=== PATIENT | female | born 1975 | race Two or more races ===

== ENCOUNTER 2023-08-30 13:52 | Inpatient (IN) | payer OTHER ==
[~2023-08-30] VITALS: Ht 152.4 cm; Wt 105.2 kg
[2023-08-30] MEDS ORDERED: SYNTHROID175 MCG PO (14:17)
[2023-08-30] MEDS ORDERED: [UNRECOGNIZED DRUG - OTHER] (14:19)
[2023-08-30] MEDS ORDERED: SINGULAIR10 MG PO (14:20)
[2023-08-30] MEDS ORDERED: GLUCOTROL (14:20)
[2023-08-30] MEDS ORDERED: CLARITIN5 MG PO (14:20)
[2023-08-30] MEDS ORDERED: COZAAR100 MG PO (14:21)
[2023-08-30] MEDS ORDERED: LEXAPRO20 MG PO (14:21)
[2023-08-30] MEDS ORDERED: SEROQUEL XR200 MG PO (14:22)
[2023-08-30] MEDS ORDERED: [UNRECOGNIZED DRUG - SUPPLY] TP (14:22)
[2023-08-30] MEDS ORDERED: LYRICA150 MG PO (14:23)
--- NOTE | 2023-08-30 14:24 | NUR ---
PTE REFIERE [facility] ,TOS Y DOLOR COPRORAL DESDE HACEVARIOS CUADRA. SE LE QUIANA S/V Y SE MANTIENE EN VICTOR M DE ESPERA.
[2023-08-30] MEDS ORDERED: METHYLPREDNISOLONE SOD SUCC 500 MG VIAL IV STA (16:54)
[2023-08-30] MEDS ORDERED: ALBUTEROL SULFATE 3 ML/2.5 MG AMPUL.NEB IH SCH (17:00)
[2023-08-30] MEDS ORDERED: IPRATROPIUM BROMIDE 0.5 MG/2.5 ML AMPUL.NEB IH SCH (17:00)
--- NOTE | 2023-08-30 17:31 | NUR ---
SE RECIBE PTE. ALERTA Y ORIENTADA X3. SE ORIENTA SOBRE TX MEDICO Y REFIERE ENTENDER. SE REALIZAN MUESTRAS DE LAB BAJO MEDIDAS ASEPTICAS Y SE ENVIAN. SE REALZIAN CANALIZACION EN BRAZO DERECHO CON ANGIO #22, BAJO MEDIDAS ASEPTICAS. SE ADMINISTRA MEDICAMENTO SYD ORDEN MEDICA.
[2023-08-30 17:49] LABS: HEMATOCRIT 41.9 % (36.0-45.00); HEMOGLOBIN 13.7 g/dL (12.0-15.00); MEAN CELL VOLUME 75.7 fL (80.00-100.00); MEAN CORPUSCULAR HEMOGLOBIN 24.7 pg (27.00-32.0); MEAN CORPUSCULAR HGB CONC 32.7 g/dl (32.0-36.0); PLATELET COUNT 269 K/uL (150-450); RED BLOOD COUNT 5.54 M/uL (4.00-6.00)
[2023-08-30 17:52] LABS: RED CELL DISTRIBUTION WIDTH 17.4 % (11.5-14.5)
[2023-08-30 18:10] LABS: ALBUMIN 3.9 gm/dL (3.4-5.0); BILIRUBIN TOTAL 0.38 mg/dL (0.3-1.2); CALCIUM 9.4 mg/dL (8.5-10.1); CREATININE SERUM 0.92 mg/dL (0.55-1.02); GFR 66.01; GLOBULINA 4.2 G/DL (2.4-3.5); POTASSIUM 3.77 mEq/L (3.5-5.1); TOTAL PROTEIN 8.1 gm/dL (6.4-8.2)
[2023-08-30] MEDS ORDERED: GUAIFENESIN/DEXTROMETHORPHAN 100 MG/5 ML ML PO STA (20:21)
[2023-08-30 22:33] LABS: ABG PH 7.422 (7.35-7.45); ABG PO2 70.8 mmHg (80-100); ABG pCO2 36.4 mmHg (35-45); SaO2 94.3 %
[2023-08-30 22:34] LABS: BASE EXCESS -0.7 mmol/l; BICARBONATE 23.2 mmol/l (23-25); Tco2 24.3 mmol/l
[2023-08-30 22:36] LABS: o2 21 %
[2023-08-30 22:37] LABS: allen test SATISFACTORY; puncture site RADIAL RIGHT
[2023-08-31] MEDS ORDERED: HYDROCODONE/CHLORPHEN P-STIREX 5 ML ML PO STA (00:16)
[2023-08-31] MEDS ORDERED: ALBUTEROL SULFATE 3 ML/2.5 MG AMPUL.NEB IH STA (02:23)
[2023-08-31] MEDS ORDERED: BUDESONIDE 0.5 MG/2 ML AMPUL.NEB IH STA (02:23)
[2023-08-31] MEDS ORDERED: ALBUTEROL SULFATE 3 ML/2.5 MG AMPUL.NEB IH SCH ×2 (04:00→09:00)
[2023-08-31] MEDS ORDERED: GUAIFENESIN/DEXTROMETHORPHAN 100 MG/5 ML ML PO STA (04:58)
[2023-08-31] MEDS ORDERED: INSULIN REGULAR, HUMAN 300 UNITS/3 ML UNITS IV STA (07:28)
--- NOTE | 2023-08-31 07:28 | NUR ---
SE RECIBE PACIENTE FEMENINA ALERTA Y ORIENTADA EN CLIVE K6 CON BARANDAS ELEVADAS. AREA DE VENOPUNCION PATENTE GISSELLE DE EDEMA Y ENROJECIMIENTO. PENDIENTE LA CONSULTA. SE OBSERVA POR CAMBIOS.
[2023-08-31] MEDS ORDERED: 0.9 % SODIUM CHLORIDE 1,000 ML IV SCH (07:45)
[2023-08-31] MEDS ORDERED: METHYLPREDNISOLONE SOD SUCC 40 MG VIAL IV SCH (09:00)
[2023-08-31] MEDS ORDERED: AZITHROMYCIN 500 MG VIAL IV SCH (09:00)
[2023-08-31] MEDS ORDERED: IPRATROPIUM BROMIDE 0.5 MG/2.5 ML AMPUL.NEB IH SCH (09:00)
[2023-08-31] MEDS ORDERED: CEFTRIAXONE SODIUM 1,000 MG VIAL IV SCH (09:00)
[2023-08-31] MEDS ORDERED: GUAIFENESIN 200 MG/10 ML BLIST.PACK PO SCH (12:00)
[2023-08-31] MEDS ORDERED: BUTALB/ACETAMINOPHEN/CAFFEINE 1 TAB TABLET PO PRN (18:00)
[2023-09-01] MEDS ORDERED: METHYLPREDNISOLONE SOD SUCC 40 MG VIAL IV SCH
[2023-09-01] MEDS ORDERED: METHYLPREDNISOLONE SOD SUCC 125 MG VIAL IV SCH (12:00)
[2023-09-01] MEDS ORDERED: DEXTROSE 50 % IN WATER 0.5 G/ML DISP.SYRIN IV PRN (12:00)
[2023-09-01] MEDS ORDERED: INSULIN LISPRO 1,000 UNIT/10 ML UNITS SUBCUTANEO PRN (12:00)
[2023-09-01] MEDS ORDERED: Pregabalin 50 MG CAPSULE PO SCH (17:00)
[2023-09-01] MEDS ORDERED: LORATADINE 10 MG TABLET PO SCH (17:00)
[2023-09-01] MEDS ORDERED: QUETIAPINE FUMARATE 100 MG TABLET PO SCH (21:00)
[2023-09-01] MEDS ORDERED: INSULIN GLARGINE,HUM.REC.ANLOG 1,000 UNITS/10 ML UNITS SUBCUTANEO SCH (21:00)
[2023-09-02] MEDS ORDERED: LEVOTHYROXINE SODIUM 175 MCG TABLET PO SCH (06:00)
[2023-09-02] MEDS ORDERED: LACTULOSE 20 G/30 ML BLIST.PACK PO STA (07:50)
[2023-09-02] MEDS ORDERED: LOSARTAN POTASSIUM 100 MG TABLET PO SCH (09:00)
[2023-09-02] MEDS ORDERED: FAMOTIDINE/PF 20 MG/2 ML VIAL IV SCH (09:00)
[2023-09-02] MEDS ORDERED: ATORVASTATIN CALCIUM 20 MG TABLET PO SCH (09:00)
[2023-09-02] MEDS ORDERED: FLUCONAZOLE 200 MG TABLET PO ONE (16:00)
[2023-09-02] MEDS ORDERED: BENZONATATE 200 MG CAPSULE PO SCH (17:00)
[2023-09-02] MEDS ORDERED: CLOTRIMAZOLE 10 MG TROCHE MM SCH (17:00)
[2023-09-02] MEDS ORDERED: METHYLPREDNISOLONE SOD SUCC 40 MG VIAL IV SCH (17:00)
[2023-09-03] MEDS ORDERED: CODEINE/PROMETHAZINE HCL 1 ML ML PO SCH (01:00)
[2023-09-03] MEDS ORDERED: ENALAPRILAT DIHYDRATE 1.25 MG/ML VIAL IV PRN (08:30)
[2023-09-03] MEDS ORDERED: AMLODIPINE BESYLATE 5 MG TABLET PO SCH (09:00)
[2023-09-03] MEDS ORDERED: FLUCONAZOLE IN NACL,ISO-OSM 2 MG/ML ML IV SCH (12:00)
[2023-09-03] MEDS ORDERED: METHYLPREDNISOLONE SOD SUCC 40 MG VIAL IV SCH (17:00)
[2023-09-04] MEDS ORDERED: METHYLPREDNISOLONE SOD SUCC 40 MG VIAL IV SCH (09:00)
[2023-09-06] MEDS ORDERED: METHYLPREDNISOLONE SOD SUCC 40 MG VIAL IV SCH (09:00)
[2023-09-07] MEDS ORDERED: SODIUM CHLORIDE 0.45 % 1,000 ML IV SCH (08:15)
[2023-09-07] MEDS ORDERED: CODEINE/PROMETHAZINE HCL 1 ML ML PO SCH (09:00)
[2023-09-08] MEDS ORDERED: CODEINE/PROMETHAZINE HCL 1 ML ML PO SCH (09:00)
[2023-09-09] MEDS ORDERED: METHYLPREDNISOLONE SOD SUCC 40 MG VIAL IV SCH ×2 (01:00→09:00)
[2023-09-09] MEDS ORDERED: CODEINE/PROMETHAZINE HCL 1 ML ML PO SCH (09:00)
[2023-09-09] MEDS ORDERED: PREGABALIN PO SCH (17:00)
[2023-09-10] MEDS ORDERED: METHYLPREDNISOLONE SOD SUCC 40 MG VIAL IV SCH (12:00)
[2023-09-11] MEDS ORDERED: KETOROLAC TROMETHAMINE 30 MG VIAL IV PRN (04:15)
[2023-09-11] MEDS ORDERED: DOCUSATE CALCIUM 240 MG CAPSULE PO SCH (11:21)
[2023-09-12] MEDS ORDERED: METHYLPREDNISOLONE SOD SUCC 40 MG VIAL IV STA (09:02)
[2023-09-12 09:49] LABS: HEMATOCRIT 41.7 % (36.0-45.00); HEMOGLOBIN 13.5 g/dL (12.0-15.00); MEAN CELL VOLUME 79.8 fL (80.00-100.00); MEAN CORPUSCULAR HEMOGLOBIN 25.8 pg (27.00-32.0); MEAN CORPUSCULAR HGB CONC 32.4 g/dl (32.0-36.0); PLATELET COUNT 164 K/uL (150-450); RED BLOOD COUNT 5.22 M/uL (4.00-6.00); RED CELL DISTRIBUTION WIDTH 17.8 % (11.5-14.5)
[2023-09-12 09:58] LABS: CALCIUM 9.5 mg/dL (8.5-10.1); CREATININE SERUM 0.77 mg/dL (0.55-1.02); GFR 81.06; POTASSIUM 4.53 mEq/L (3.5-5.1)
[2023-09-12] MEDS ORDERED: METHYLPREDNISOLONE SOD SUCC 40 MG VIAL IV SCH (12:00)
[2023-09-12] MEDS ORDERED: CODEINE/PROMETHAZINE HCL 1 ML ML PO STA (12:05)
[2023-09-12] MEDS ORDERED: CODEINE/PROMETHAZINE HCL 1 ML ML PO SCH (21:00)
[2023-09-12] MEDS ORDERED: INSULIN LISPRO 1,000 UNIT/10 ML UNITS SUBCUTANEO STA (22:50)
[2023-09-13] MEDS ORDERED: INSULIN GLARGINE,HUM.REC.ANLOG 1,000 UNITS/10 ML UNITS SUBCUTANEO SCH (21:00)
[2023-09-14] MEDS ORDERED: BUTALB/ACETAMINOPHEN/CAFFEINE 1 TAB TABLET PO PRN (20:15)
[2023-09-15] MEDS ORDERED: CODEINE/PROMETHAZINE HCL 1 ML ML PO SCH (12:00)
[2023-09-15] MEDS ORDERED: INSULIN REGULAR, HUMAN 1,000 UNIT/10 ML UNITS SUBCUTANEO STA (19:05)
[2023-09-15] MEDS ORDERED: INSULIN REGULAR, HUMAN 300 UNITS/3 ML UNITS IV STA (19:06)
[2023-09-15] MEDS ORDERED: INSULIN GLARGINE,HUM.REC.ANLOG 1,000 UNITS/10 ML UNITS SUBCUTANEO SCH (21:00)
[2023-09-16] MEDS ORDERED: INSULIN LISPRO 1,000 UNIT/10 ML UNITS SUBCUTANEO SCH (08:00)
[2023-09-16] MEDS ORDERED: POLYETHYLENE GLYCOL 3350 17 GM BLIST.PACK PO STA (20:09)
[2023-09-16] MEDS ORDERED: PANTOPRAZOLE SODIUM 40 MG/VIAL VIAL IV SCH (21:28)
[2023-09-17] MEDS ORDERED: INSULIN LISPRO 1,000 UNIT/10 ML UNITS SUBCUTANEO SCH (08:00)
[2023-09-17] MEDS ORDERED: INSULIN REGULAR, HUMAN 1,000 UNIT/10 ML UNITS IV SCH (08:00)
[2023-09-17 08:30] LABS: CALCIUM 8.6 mg/dL (8.5-10.1); CREATININE SERUM 0.73 mg/dL (0.55-1.02); GFR 86.21; POTASSIUM 4.86 mEq/L (3.5-5.1)
[2023-09-17 08:46] LABS: HEMATOCRIT 40.2 % (36.0-45.00); HEMOGLOBIN 13.1 g/dL (12.0-15.00); MEAN CELL VOLUME 81.4 fL (80.00-100.00); MEAN CORPUSCULAR HEMOGLOBIN 26.5 pg (27.00-32.0); MEAN CORPUSCULAR HGB CONC 32.5 g/dl (32.0-36.0); RED BLOOD COUNT 4.94 M/uL (4.00-6.00); RED CELL DISTRIBUTION WIDTH 19.3 % (11.5-14.5)
[2023-09-17] MEDS ORDERED: POLYETHYLENE GLYCOL 3350 17 GM BLIST.PACK PO SCH (09:00)
[2023-09-17 09:06] LABS: PLATELET COUNT 95 K/uL (150-450)
[2023-09-17] MEDS ORDERED: INSULIN LISPRO 1,000 UNIT/10 ML UNITS SUBCUTANEO PRN (11:15)
[2023-09-17] MEDS ORDERED: AZITHROMYCIN 500 MG in 0.9 % SODIUM CHLORIDE 250 ML IV SCH (12:00)
[2023-09-17] MEDS ORDERED: INSULIN GLARGINE,HUM.REC.ANLOG 1,000 UNITS/10 ML UNITS SUBCUTANEO SCH (21:00)
[2023-09-18] MEDS ORDERED: INSULIN LISPRO 1,000 UNIT/10 ML UNITS SUBCUTANEO SCH (08:00)
[2023-09-18] MEDS ORDERED: METHYLPREDNISOLONE SOD SUCC 40 MG VIAL IV SCH (17:00)
[2023-09-19] MEDS ORDERED: POLYETHYLENE GLYCOL 3350 17 GM BLIST.PACK PO SCH (09:00)
[2023-09-20] MEDS ORDERED: METHYLPREDNISOLONE SOD SUCC 40 MG VIAL IV SCH (09:00)
[2023-09-20] MEDS ORDERED: PANTOPRAZOLE SODIUM 40 MG TABLET.DR PO SCH (09:00)
[2023-09-22] MEDS ORDERED: BUTALB/ACETAMINOPHEN/CAFFEINE 1 TAB TABLET PO PRN (03:45)
[2023-09-23 00:10] LABS: borde igm < 1.0 index (0.0-0.9); bordetella igg < 0.95 index (0.00-0.94)
== END 2023-09-22 16:16 | disposition home or self-care (01) | DRG 202 ==
LOC: ER 13:52 → SEC-K 08-31 08:00 → MEDJ 08-31 08:00
PROVIDERS: General Practice; Internal Medicine; ADMIT Internal Medicine; ATTEND Internal Medicine
PROC: BB24ZZZ Computerized Tomography (CT Scan) of Bilateral Lungs (ICD-10-PCS; principal; 2023-08-30)
PROC: 3E0F7GC Introduction of Other Therapeutic Substance into Respiratory Tract, Via Natural or Artificial Opening (ICD-10-PCS; 2023-08-31)
PROC: BB24ZZZ Computerized Tomography (CT Scan) of Bilateral Lungs (ICD-10-PCS; 2023-09-15)
DX: J45.51 Severe persistent asthma with (acute) exacerbation (principal); B37.0 Candidal stomatitis; J20.5 Acute bronchitis due to respiratory syncytial virus; E11.9 Type 2 diabetes mellitus without complications; I10 Essential (primary) hypertension; B33.8 Other specified viral diseases; Z79.4 Long term (current) use of insulin

== ENCOUNTER 2024-09-03 11:55 | Emergency (ER) | payer OTHER ==
[~2024-09-03] VITALS: Ht 160 cm; Wt 103.4 kg
[~2024-09-03 11:55] MED LIST: CLARITIN5 MG PO; COZAAR100 MG PO; GLUCOTROL; LEXAPRO20 MG PO; LYRICA150 MG PO; SEROQUEL XR200 MG PO; SINGULAIR10 MG PO; SYNTHROID175 MCG PO; [UNRECOGNIZED DRUG - OTHER]; [UNRECOGNIZED DRUG - SUPPLY] TP
[2024-09-03] MEDS ORDERED: CEFTRIAXONE SODIUM 1,000 MG VIAL IV STA (14:49)
[2024-09-03] MEDS ORDERED: IPRATROPIUM/ALBUTEROL SULFATE 3 ML AMPUL.NEB IH SCH (15:00)
[2024-09-03 15:30] LABS: HEMOGLOBIN 13.6 g/dL (12.0-15.00); MEAN CELL VOLUME 80.8 fL (80.00-100.00); MEAN CORPUSCULAR HEMOGLOBIN 26.1 pg (27.00-32.0); MEAN CORPUSCULAR HGB CONC 32.3 g/dl (32.0-36.0); PLATELET COUNT 281 K/uL (150-450); RED CELL DISTRIBUTION WIDTH 16.2 % (11.5-14.5)
[2024-09-03] MEDS ORDERED: IPRATROPIUM/ALBUTEROL SULFATE 3 ML AMPUL.NEB IH ONE (16:14)
[2024-09-03] MEDS ORDERED: GUAIFENESIN 200 MG/10 ML BLIST.PACK PO STA (17:05)
[2024-09-03] MEDS ORDERED: GUAIFENESIN 200 MG/10 ML BLIST.PACK PO ONE (18:18)
== END 2024-09-03 19:04 | disposition home or self-care (01) ==
LOC: ER 11:55
DX: R53.81 Other malaise (principal); J06.9 Acute upper respiratory infection, unspecified; Z20.822 Contact with and (suspected) exposure to COVID-19; E11.9 Type 2 diabetes mellitus without complications